=== PATIENT | male | born 1990 | race American Indian/Alaskan Native ===

== ENCOUNTER 2019-07-10 21:40 | Emergency (ER) | payer BC, OTHER ==
--- NOTE | 2019-07-10 22:16 | Event Note ---
ED Screening Note ED Screening Note: states that he is having yellow drainage from the rectum that began two days ago when he wipes denies any lumps/pain around the rectum states only engages in vaginal intercourse, denies any rectal intercourse no blood no allergies to meds This initial assessment/diagnostic orders/clinical plan/treatment(s) is/are subject to change based on patients health status, clinical progression and re- assessment by fellow clinical providers in the ED. Further treatment and workup at subsequent clinical providers discretion. Patient/guardian urged not to elope from the ED as their condition may be serious if not clinically assessed and managed.
--- NOTE | 2019-07-11 01:49 | Emergency Department Report ---
HPI - General Chief Complaint: Nausea/Vomiting/Diarrhea Time Seen by Provider: 07/10/19 22:13 - HPI HPI: Room 36 The patient is a 29-year-old male presented with a chief complaint of fecal incontinence. Patient states 2 days ago he felt something wet leaking from his rectum. The patient states he wiped and there was a brown liquid present that smelled like feces. Patient did not have any episodes yesterday but today patient had a second episode of the same. Patient denies rectal pain or abdominal pain. Patient denies nausea or vomiting. Patient denies history of fever. She states his last bowel movement occurred this morning and was within normal limits with formed stool. Patient denies any back pain or injury. Patient denies ladder incontinence. Patient denies lower extremity paresthesia. Patient denies unexplained weight loss. Patient denies rectal trauma ED Past Medical Hx - Past Medical History Previous Medical History?: Yes Hx Asthma: Yes - Surgical History Past Surgical History?: Yes Additional Surgical History: Right Shoulder - Family History Family history: no significant - Social History Smoking Status: Current Every Day Smoker Substance Use Type: None (denies illicit drug use), Alcohol (occasional) - Medications Home Medications: Home Medications Medication Instructions Recorded Confirmed Last Taken Type Ibuprofen [Motrin] 600 mg PO Q8H PRN #20 tablet 07/14/18 Unknown Rx methOCARBAMOL [Robaxin TAB] 500 mg PO Q6H PRN #15 tablet 07/14/18 Unknown Rx traMADoL [Ultram] 50 mg PO Q6HR PRN #10 tablet 07/14/18 Unknown Rx ED Review of Systems ROS: Stated complaint: BOWEL LEAKAGE Other details as noted in HPI Constitutional: denies: fever Eyes: denies: eye pain ENT: denies: throat pain Respiratory: no symptoms reported Cardiovascular: denies: chest pain Endocrine: no symptoms reported Gastrointestinal: denies: abdominal pain, nausea, vomiting Genitourinary: denies: dysuria Musculoskeletal: denies: back pain Neurological: denies: headache, paresthesias Physical Exam - Physical Exam Vital Signs: Vital Signs 07/10/19 21:44 Temperature 98.2 F Pulse Rate 97 H Respiratory 18 Rate Blood Pressure 148/90 O2 Sat by Pulse 94 Oximetry Physical Exam: GENERAL: The patient is well-developed well-nourished male lying on stretcher not appearing to be in acute distress. [] HEENT: Normocephalic. Atraumatic. Extraocular motions are intact. Patient has moist mucous membranes. NECK: Supple. Trachea midline CHEST/LUNGS: Clear to auscultation. There is no respiratory distress noted. HEART/CARDIOVASCULAR: Regular. There is no tachycardia. There is no gallop rub or murmur. ABDOMEN: Abdomen is soft, nontender. Patient has normal bowel sounds. There is no abdominal distention. SKIN: There is no rash. There is no edema. There is no diaphoresis. NEURO: The patient is awake, alert, and oriented. The patient is cooperative. The patient has normal speech MUSCULOSKELETAL: There is no evidence of acute injury. RECTAL: No lesions seen. No drainage visualized. No perirectal anal fluctuance or tenderness ED Course Vital Signs 07/10/19 21:44 Temperature 98.2 F Pulse Rate 97 H Respiratory 18 Rate Blood Pressure 148/90 O2 Sat by Pulse 94 Oximetry ED Medical Decision Making - Differential Diagnosis passive fecal incontinence Critical care attestation.: If time is entered above; I have spent that time in minutes in the direct care of this critically ill patient, excluding procedure time. ED Disposition Clinical Impression: Fecal incontinence Disposition: DC-01 TO HOME OR SELFCARE Is pt being admited?: No Does the pt Need Aspirin: No Condition: Stable Referrals: FLO CHAPIN MD [Staff Physician] - [facility] (Dr. Chapin is a scale installer. Please follow up with him for further evaluation) Time of Disposition: 01:44
[2019-07-11 01:58] VITALS: BP 108/60
== END 2019-07-11 01:58 | disposition home or self-care (01) ==
LOC: ED 21:40
DX: R15.9 Full incontinence of feces (principal); J45.909 Unspecified asthma, uncomplicated; F17.200 Nicotine dependence, unspecified, uncomplicated
CPT/HCPCS: 99282